=== PATIENT | female | born 1975 | race Caucasian/White ===

== ENCOUNTER 2016-04-09 10:59 | Emergency (ER) | payer MEDICAID ==
[~2016-04-09] VITALS: Ht 160 cm; Wt 92.0 kg
[~2016-04-09 10:59] MED LIST: BENA20 PO; ESCI10TA PO; ESCI20TA PO; FERR-89 PO; HYDR25TA PO; LISI-662 PO
[2016-04-09] MEDS ORDERED: LISI-662 PO (11:40)
[2016-04-09] MEDS ORDERED: GABA-531 PO (11:40)
[2016-04-09] MEDS ORDERED: OxyCODONE HCL/ACETAMINOPHEN 5-325 MG TABLET PO ONE (13:30)
[2016-04-09] MEDS ORDERED: CYCLOBENZAPRINE HCL 10 MG TABLET PO ONE (13:30)
[2016-04-09] MEDS ORDERED: KETOROLAC TROMETHAMINE 60 MG/2 ML VIAL IM ONE (13:30)
[2016-04-09] MEDS ORDERED: MORPHINE SULFATE 10 MG/ML SYRINGE IM ONE (15:00)
[2016-04-09] MEDS ORDERED: ONDANSETRON HCL 4 MG/2 ML VIAL IM ONE (15:00)
[2016-04-09 15:05] VITALS: BP 135/81
== END 2016-04-09 15:42 | disposition home or self-care (01) ==
LOC: EMS 11:04
DX: M54.5 Low back pain (principal); F17.210 Nicotine dependence, cigarettes, uncomplicated
CPT/HCPCS: 96372; 99284; J1885; J2270; J2405

== ENCOUNTER 2018-03-22 12:46 | Emergency (ER) | payer MEDICAID ==
[~2018-03-22] VITALS: Ht 160 cm; Wt 75.0 kg
[~2018-03-22 12:46] MED LIST changes: -BENA20 PO; +GABA-531 PO
[2018-03-22] MEDS ORDERED: ONDANSETRON HCL 4 MG TABLET PO ONE (17:30)
[2018-03-22 17:40] VITALS: BP 164/98
[2018-03-22 17:40] LABS: BASOPHILS % (AUTO) 1.6 % (0.0-2.0); HEMATOCRIT 35.8 % (36-46); LYMPHOCYTES # (AUTO) 1.7 K/uL (1.0-4.8); LYMPHOCYTES % (AUTO) 26.7 % (22.0-44.0); MEAN CORPUSCULAR HEMOGLOBIN 32.7 pg (26.0-34.0); MEAN CORPUSCULAR HGB CONC 33.5 G/dL (31.0-37.0); MEAN CORPUSCULAR VOLUME 97 fL (80-100); MONOCYTES # (AUTO) 0.6 K/uL (0.1-1.0); MONOCYTES % (AUTO) 10.3 % (2.0-9.0); NEUTROPHILS # (AUTO) 3.7 K/uL (1.8-7.7); NEUTROPHILS % (AUTO) 59.4 % (40.0-70.0); PLATELET COUNT (AUTO) 251 K/uL (150-450); RED BLOOD CELL COUNT(AUTO) 3.68 MIL/uL (4.00-5.20); RED CELL DISTRIBUTION WIDTH 16.8 % (11.5-14.5)
[2018-03-22 17:48] LABS: ANION GAP 9 mmol/L (8-16); CALCIUM, TOTAL 9.4 mg/dL (8.8-10.5); CARBON DIOXIDE 30 mmol/L (22-29); CHLORIDE 99 mmol/L (98-107); GLOMERULAR FILTR. RATE CALC > 60 mL/min (>60); GLUCOSE,RANDOM 106 mg/dL (70-110); POTASSIUM 4.2 mmol/L (3.5-5.1); SODIUM SERUM 138 mmol/L (136-145); UREA NITROGEN, BLOOD 8 mg/dL (7-18)
[2018-03-22 17:54] LABS: ALANINE AMINOTRANSFERASE 98 U/L (12-78); ALBUMIN 3.8 g/dL (3.4-5.0); ALKALINE PHOSPHATASE 61 U/L (46-116); ASPARTATE AMINOTRANSFERASE 81 U/L (15-37); BILIRUBIN,TOTAL 0.4 mg/dL (0.1-1.0); TOTAL PROTEIN, SERUM 7.6 g/dL (6.4-8.2)
[2018-03-22] MEDS ORDERED: ChlordiazePOXIDE HCL 25 MG CAPSULE PO ONE (18:15)
== END 2018-03-22 19:13 | disposition home or self-care (01) ==
LOC: EMS 12:47
DX: I10 Essential (primary) hypertension (principal); F10.10 Alcohol abuse, uncomplicated; F17.210 Nicotine dependence, cigarettes, uncomplicated; F12.90 Cannabis use, unspecified, uncomplicated; G89.29 Other chronic pain; Z79.899 Other long term (current) drug therapy; Z88.5 Allergy status to narcotic agent; Z88.8 Allergy status to other drugs, medicaments and biological substances; Y90.0 Blood alcohol level of less than 20 mg/100 ml
CPT/HCPCS: 36415; 80053; 85025; 99283; G0480; Q0162

== ENCOUNTER 2018-03-28 07:23 | Emergency (ER) | payer MEDICAID ==
[~2018-03-28] VITALS: Ht 160 cm; Wt 77.3 kg
[~2018-03-28 07:23] MED LIST changes: -ESCI10TA PO; -ESCI20TA PO; -FERR-89 PO; -GABA-531 PO; -HYDR25TA PO
[2018-03-28] MEDS ORDERED: LISI-662 PO (07:43)
[2018-03-28] MEDS ORDERED: HYD25 PO (07:43)
[2018-03-28] MEDS ORDERED: LIB5 PO (07:43)
[2018-03-28] MEDS ORDERED: PROPARACAINE HCL 0.5% 15 ML OPHTHALMIC SOLUTION OS ONE (09:30)
[2018-03-28] MEDS ORDERED: FLUORESCEIN SODIUM 1 MG STRIP OS ONE (09:30)
[2018-03-28] MEDS ORDERED: ERYTHROMYCIN 0.5% 3.5 GM TUBE OPHTHALMIC OINTMENT OS ONE (10:00)
[2018-03-28 10:16] VITALS: BP 135/81
== END 2018-03-28 10:17 | disposition home or self-care (01) ==
LOC: EMS 07:24
DX: H10.9 Unspecified conjunctivitis (principal); I10 Essential (primary) hypertension; M54.9 Dorsalgia, unspecified; G89.29 Other chronic pain; F10.20 Alcohol dependence, uncomplicated; F17.210 Nicotine dependence, cigarettes, uncomplicated; F12.90 Cannabis use, unspecified, uncomplicated; Z79.899 Other long term (current) drug therapy; Z88.6 Allergy status to analgesic agent; Z88.8 Allergy status to other drugs, medicaments and biological substances; Z76.0 Encounter for issue of repeat prescription